=== PATIENT | male | born 1985 | race Caucasian/White ===

== ENCOUNTER → 2020-06-12 | Outpatient (CLI) | payer OTHER ==
--- NOTE | 2020-06-12 14:49 | REPVR ---
PROCEDURE INFORMATION: Exam: MR Lumbar Spine Without Contrast Exam date and time: 06/12/2020 1:56 PM Age: 35 years old Clinical indication: Low back pain; Patient HX: Sacroccoccygeal disorders radiculopathy L reg TECHNIQUE: Imaging protocol: Multiplanar magnetic resonance images of the lumbar spine without intravenous contrast. COMPARISON: No relevant prior studies available. FINDINGS: Vertebrae: There is what likely represents a hemangioma in the S1 vertebra. 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 L1-L2: No significant disc disease. No significant spinal canal stenosis. No neural foraminal stenosis. L2-L3: No significant disc disease. No significant spinal canal stenosis. No neural foraminal stenosis. L3-L4: No significant disc disease. No significant spinal canal stenosis. No neural foraminal stenosis. L4-L5: There is mild retrolisthesis at this level. There is disc desiccation. There is a moderate disc bulge with a superimposed broad-based central disc herniation that indents the ventral thecal sac. Disc bulging extends into both neural foramen causing mild bilateral neural foraminal narrowing. There is facet arthropathy and ligamentum flavum hypertrophy. L5-S1: No significant disc disease. No significant spinal canal stenosis. No neural foraminal stenosis. Sacrum/coccyx: There is a transitional lumbosacral segment. There is sacralization of the L5 vertebra. Correlation with plain films prior to any future lumbar procedure is recommended to confirm accurate numbering of the lumbar spine. Soft tissues: Unremarkable. IMPRESSION: 1. There is a transitional lumbosacral segment. There is sacralization of the L5 vertebra. Correlation with plain films prior to any future lumbar procedure is recommended to confirm accurate numbering of the lumbar spine. 2. Disc bulge with superimposed broad-based central herniation at L4/5. Please see details above. Electronically signed by: Barber aCmejo On 06/12/2020 14:49:08 PM
--- NOTE | 2020-06-12 14:55 | REPVR ---
PROCEDURE INFORMATION: Exam: MR Pelvis Without Contrast, Sacrum Exam date and time: 06/12/2020 1:56 PM Age: 35 years old Clinical indication: Pelvic pain; Patient HX: Sacroccoccygeal disorders radiculopathy L reg TECHNIQUE: Imaging protocol: Magnetic resonance images of the pelvis without intravenous contrast. Exam focused on the sacrum. COMPARISON: No relevant prior studies available. FINDINGS: The sacral foramina are unremarkable. There is no bony erosion or mass. The presacral soft tissues are within normal limits. Urinary bladder: The urinary bladder is moderately distended. Bones/joints: There is what likely represents a hemangioma in the S1 vertebra. There is a disc herniation at L4/5. There is a transitional lumbosacral segment. Soft tissues: Unremarkable. IMPRESSION: 1.The sacral foramina are unremarkable. There is no bony erosion or mass. The presacral soft tissues are within normal limits. 2. There is a disc herniation at L4/5. There is a transitional lumbosacral segment. Please refer to contemporaneous MR report of the lumbar spine for additional details. Electronically signed by: Barber Camejo On 06/12/2020 14:55:39 PM
== END ==
LOC: M RAD 12:48
DX: M53.3 Sacrococcygeal disorders, not elsewhere classified (principal); M54.16 Radiculopathy, lumbar region; M51.26 Other intervertebral disc displacement, lumbar region

== ENCOUNTER → 2020-06-18 | Outpatient (CLI) | payer OTHER ==
--- NOTE | 2020-06-18 14:38 | REP ---
INDICATION: STRESS FX PELVIS INITIAL ENCOUNTER FOR FX. COMPARISON: MRI 06/12/2020. TECHNIQUE/RADIOTRACER AND DOSE: Following the intravenous administration of 20.9 mCi technetium 99 M MDP, patient's pelvic region is imaged in multiple projections in the flow phase, blood pool and delayed phases of imaging. FINDINGS: No abnormal blood flow or blood pooling is seen. Delayed images show homogeneous radiotracer uptake throughout the visualized osseous structures. There is no scintigraphic evidence of occult fracture. IMPRESSION: Negative triple phase bone scan of the pelvis. <Electronically signed by Shai Grijalva > 06/18/20 [id number]
== END ==
LOC: EDUNIT# 11:00 → M RAD 11:13
DX: M84.350A Stress fracture, pelvis, initial encounter for fracture (principal); M53.3 Sacrococcygeal disorders, not elsewhere classified
CPT/HCPCS: 78315; A9503

== ENCOUNTER → 2022-07-02 | Outpatient (CLI) | payer OTHER | LOC: M PLAIMG 06:37 | PROVIDERS: ATTEND Physical Medicine & Rehabilitation Pain Medicine | DX: M54.50 Low back pain, unspecified (principal) ==

== ENCOUNTER → 2023-07-01 | Outpatient (CLI) | payer OTHER ==
[~2023-07-01] MED LIST: ISOVUE-300 61% 100ML VIAL As Ordered ONE; LIDOCAINE 1% MDV 20ML VIAL As Ordered ONE; PROHANCE 279.3MG/ML 5ML VIAL As Ordered ONE
== END ==
LOC: M RAD 08:56
PROVIDERS: ATTEND Technician, Other
DX: M25.512 Pain in left shoulder (principal)
CPT/HCPCS: 23350; 73223; 77002; A9576; Q9967

== ENCOUNTER 2023-12-23 06:28 | Day surgery (SDC) | payer OTHER ==
[~2023-12-23] VITALS: Ht 172.7 cm; Wt 66.7 kg
[~2023-12-23 06:28] MED LIST changes: -ISOVUE-300 61% 100ML VIAL As Ordered ONE; -LIDOCAINE 1% MDV 20ML VIAL As Ordered ONE; +MELO15TA28 PO; -PROHANCE 279.3MG/ML 5ML VIAL As Ordered ONE
[2023-12-23] MEDS ORDERED: LR 1,000 ML IV SCH ×2 (07:20→09:35)
[2023-12-23] MEDS: ROPIvacaine 0.5% 30ML VIAL PN ONE (08:55)
[2023-12-23] MEDS: LIDOCAINE 1% SDV 5ML VIAL PN ONE (08:55)
[2023-12-23] MEDS: dexAMETHasone 10MG/1ML VIAL PRES.FREE PN ONE (08:55)
[2023-12-23] MEDS: MIDAZOLAM INJ 2MG/2ML VIAL IV PRN (09:04)
[2023-12-23] MEDS: fentaNYL 100 MCG/2 ML INJECTION IV PRN (09:05)
[2023-12-23] MEDS ORDERED: fentaNYL 100 MCG/2 ML INJECTION As Ordered ONE (09:08)
[2023-12-23] MEDS ORDERED: LIDOCAINE 2% 100MG/5ML SDV (FOR ANES.) As Ordered ONE (09:09)
[2023-12-23] MEDS ORDERED: propofoL 200 MG/20 ML VIAL As Ordered ONE (09:09)
[2023-12-23] MEDS ORDERED: ROCURONIUM BROMIDE 50MG/5ML VIAL As Ordered ONE (09:09)
[2023-12-23] MEDS ORDERED: SUGAMMADEX SODIUM 500 MG/5 ML VIAL (BRIDION) As Ordered ONE (09:10)
[2023-12-23] MEDS ORDERED: ONDANSETRON 4MG 2ML VIAL As Ordered ONE (09:10)
[2023-12-23] MEDS ORDERED: HYDROMORPHONE HCL 0.5 MG/ 0.5 ML SYRINGE IV PRN (09:35)
[2023-12-23] MEDS ORDERED: ONDANSETRON 4MG 2ML VIAL IV PRN (09:35)
[2023-12-23] MEDS ORDERED: fentaNYL 100 MCG/2 ML INJECTION IV PRN (09:35)
[2023-12-23] MEDS ORDERED: oxyCODONE 5MG TAB PO PRN (09:35)
[2023-12-23] MEDS: ceFAZolin SOD 2 GM in IV 1 EA IV ONE (10:30)
[2023-12-23] MEDS: EPINEPHrine 1MG/ML INJ 30ML MD-VIAL As Ordered ONE (10:45)
[2023-12-23] MEDS ORDERED: ACETAMINOPHEN 1000MG 100ML IV BAG As Ordered ONE (10:49)
[2023-12-23] MEDS: TRANEXAMIC ACID 100 MG/ML 10ML VIAL IV ONE (11:00)
[2023-12-23] MEDS ORDERED: PHENYLephrine 500MCG 5ML (100MCG/ML) SYRINGE As Ordered ONE (11:29)
[2023-12-23] MEDS: TRANEXAMIC ACID 100 MG/ML 10ML VIAL As Ordered ONE (11:32)
[2023-12-23] MEDS: LIDOCAINE 1% MDV 20ML VIAL As Ordered ONE (11:34)
[2023-12-23] MEDS: LIDOCAINE W/EPINEPHRINE 1% 20ML VIAL As Ordered ONE (12:42)
[2023-12-23] MEDS: VANCOMYCIN 1000MG/20ML VIAL As Ordered ONE (12:43)
[2023-12-23 14:59] VITALS: BP 118/74; TEMP 97.2; O2SAT 98
== END 2023-12-23 15:00 | disposition home or self-care (01) ==
LOC: M SDC 06:28
PROVIDERS: ATTEND Orthopaedic Surgery
DX: M75.42 Impingement syndrome of left shoulder (principal); M19.012 Primary osteoarthritis, left shoulder; F43.10 Post-traumatic stress disorder, unspecified; Z88.0 Allergy status to penicillin; Z79.899 Other long term (current) drug therapy
CPT/HCPCS: 23120; 29822; 64415; J0131; J0171; J0690; J1100; J2250; J2371; J2405; J3010; J3370